=== PATIENT | male | born 1985 | race Two or more races ===

== ENCOUNTER 2017-09-13 08:48 | Emergency (ER) | payer SELFPAY ==
[~2017-09-13] VITALS: Ht 172.7 cm; Wt 70.3 kg
[2017-09-13 10:21] LABS: APPEARANCE,URINE TURBID; BILIRUBIN, URINE NEGATIVE (NEGATIVE); COLOR,URINE PALE YELLOW; GLUCOSE, URINE (UA) NEGATIVE (NEGATIVE); KETONES,URINE NEGATIVE (NEGATIVE); LEUKOCYTE ESTERASE ,URINE 1+ (NEGATIVE); NITRITE,URINE NEGATIVE (NEGATIVE); PH,URINE 5 (4.5-8.0); PROTEIN,URINE 2+ (NEGATIVE); UROBILINOGEN,URINE NORMAL MG/DL (0.0-1.0)
[2017-09-13 10:21] LABS: BASOPHILS % (AUTO) 0.5 % (0.0-2.0); HEMATOCRIT 46.2 % (42.0-52.0); HEMOGLOBIN 15.3 G/DL (14.2-18.0); LYMPHOCYTES % (AUTO) 15.4 % (20.0-45.0); MEAN CORPUSCULAR VOLUME 83 FL (80-99); MONOCYTES % (AUTO) 8.8 % (1.0-10.0); NEUTROPHILS % (AUTO) 74.3 % (45.0-75.0); PLATELET COUNT 271 K/UL (150-450); RED BLOOD COUNT 5.54 M/UL (4.70-6.10); RED CELL DISTRIBUTION WIDTH 12.4 % (11.6-14.8); WHITE BLOOD COUNT 9.5 K/UL (4.8-10.8)
[2017-09-13] MEDS ORDERED: Mylanta II UD 30ml ORAL ONE (10:45)
[2017-09-13] MEDS ORDERED: Lidocaine 2% Visc 15ml soln PO ONE (10:45)
[2017-09-13 10:46] LABS: ANION GAP 12 mmol/L (5-15); BLOOD UREA NITROGEN 19 mg/dL (7-18); CALCIUM 9.8 MG/DL (8.5-10.1); CARBON DIOXIDE 24 MMOL/L (21-32); CHLORIDE 103 MMOL/L (98-107); CREATININE 1.4 MG/DL (0.55-1.30); POTASSIUM 4.2 MMOL/L (3.5-5.1); SODIUM 139 MMOL/L (136-145)
[2017-09-13 10:51] LABS: ALANINE AMINOTRANSFERASE 59 U/L (12-78); ALBUMIN 4.5 G/DL (3.4-5.0); ALKALINE PHOSPHATASE 101 U/L (46-116); ASPARTATE AMINO TRANSFERASE 22 U/L (15-37); BILIRUBIN,TOTAL 0.6 MG/DL (0.2-1.0)
[2017-09-13 11:15] VITALS: BP 169/69
[2017-09-13] MEDS ORDERED: Ketorolac 30mg Inj IV ONE (11:30)
--- NOTE | 2017-09-13 12:21 | Emergency Room Report ---
History of Present Illness General Chief Complaint: Abdominal Pain Source: Patient Present Illness HPI This patient c/o one day right abd pain. Sharp, severe, constant. A/w nausea, no vomiting, no fever, no dysuria. Not better/worse since onset. No similar history. PMH: none Allergies: Coded Allergies: No Known Allergies (Unverified , 09/13/17) Nursing Documentation-PMH Past Medical History: No Stated History Review of Systems Constitutional: Reports: no symptoms Eye: Reports: no symptoms ENT: Reports: no symptoms Respiratory: Reports: no symptoms Cardiovascular: Reports: no symptoms Gastrointestinal: Reports: see HPI, abdominal pain Genitourinary: Reports: no symptoms Musculoskeletal: Reports: no symptoms Skin: Reports: no symptoms Psychiatric: Reports: no symptoms Neurological: Reports: no symptoms Endocrine: Reports: no symptoms Hematologic/Lymphatic: Reports: no symptoms Allergic: Reports: no symptoms Physical Exam Vital Signs Date Time Temp Pulse Resp B/P (MAP) Pulse Ox O2 Delivery O2 Flow Rate FiO2 09/13/17 08:51 98.2 108 20 185/110 96 Room Air 98.2 Sp02 EP Interpretation: reviewed, normal General Appearance: normal inspection, well appearing, no apparent distress, alert, GCS 15, non-toxic, mild distress, other - uncomfortable Head: normocephalic, atraumatic Eyes: bilateral eye normal inspection, bilateral eye PERRL, bilateral eye EOMI ENT: normal ENT inspection, hearing grossly normal, normal pharynx, no angioedema, normal voice, moist mucus membranes Neck: normal inspection, full range of motion, supple, no meningismus, no bony tend Respiratory: normal inspection, lungs clear, normal breath sounds, no rhonchi, no respiratory distress, no retraction, no accessory muscle use, no wheezing Cardiovascular #1: normal inspection, regular rate, rhythm, no edema Gastrointestinal: normal inspection, normal bowel sounds, soft, no mass, non- distended, other - nonsurgical but generalized abd tenderness, moderate R>L Musculoskeletal: gait/station normal, normal range of motion Neurologic: normal inspection, alert, oriented x3, responsive, motor strength/ tone normal Psychiatric: normal inspection, judgement/insight normal, memory normal Suicide Risk Assessment: Suicidal Ideation: No Had intent to initiate attempt: No Pt's plan for suicide attempt: No Has means to complete attempt: No Skin: normal inspection, normal color, no rash, warm/dry Medical Decision Making Reaction to Intervention: Improved Diagnostic Impression: Primary Impression: Renal colic on right side ER Course CT 8x5 mm right distal ureteral stone CT/MRI/US Diagnostic Results CT/MRI/US Diagnostic Results : Imaging Test Ordered: CT abd: right distal ureteral 8x5 mm stone Last Vital Signs Date Time Temp Pulse Resp B/P (MAP) Pulse Ox O2 Delivery O2 Flow Rate FiO2 09/13/17 11:32 98.2 09/13/17 08:51 108 20 185/110 96 Room Air Status: improved Disposition: HOME, SELF-CARE Referrals: NOT CHOSEN IPA/,REFERRING (PCP) Patient Instructions: Renal Colic, [id number] Jerardo Espinoza M.D. Sep 13, 2017 12:20
[2017-09-13] MEDS ORDERED: NORCO 5-325 TA1 EACH ORAL (12:22)
[2017-09-13] MEDS ORDERED: TAMSULOSIN HCL0.4 MG ORAL (12:22)
--- NOTE | 2017-09-13 12:23 | Diagnostic Imaging Report ---
Indication: Right lower quadrant abdominal pain Technique: Spiral acquisitions obtained through the abdomen and pelvis. No oral or IV contrast utilized, per urinary stone protocol. Multiplanar reconstructions were generated. Total dose length product 724.13 mGycm. CTDIvol(s) 13.21 mGy. Dose reduction achieved using automated exposure control Comparison: none Findings: There is an 8 x 5 x 5 mm calculus within the mid to distal right ureter, located approximately 10 cm proximal to the ureterovesical junction. There is mild right hydronephrosis and mild to moderate right proximal hydroureter. There is considerable stranding of the periureteral fat. A cluster of calculi is seen in the right lower pole collecting system. Multiple intrarenal calculi are also seen in the left lower pole renal collecting system. No left renal or ureteral calculi, left hydronephrosis or hydroureter demonstrated. The bladder is unremarkable and no bladder calculi are demonstrated. Lack of IV contrast limits assessment of the renal parenchyma. No gross renal parenchymal mass or cyst demonstrated. Lack of IV contrast limits assessment of the other solid organs. The liver is borderline enlarged and diffusely hypoattenuating. No focal abnormality. The gallbladder, bile ducts, pancreas, spleen, adrenals are unremarkable. No retroperitoneal or mesenteric mass or adenopathy. No pelvic mass or adenopathy. The appendix is normal. There is colonic diverticulosis. No evidence of diverticulitis no small bowel distention. No free or loculated intraperitoneal air or fluid is evident. The distal esophagus, stomach, duodenum are unremarkable. Some linear atelectasis or scarring is seen at the right lung base. The bones are unremarkable except for degenerative changes of the lumbosacral junction.. Impression: Positive for a 10 x 5 x 5 mm right distal ureteral calculus. Resultant hydronephrosis, hydroureter, and periureteral fat stranding Bilateral intrarenal calculi Fatty liver. Borderline hepatomegaly Colonic diverticulosis. No evidence of diverticulitis Degenerative lumbosacral spondylosis Findings discussed by phone with Dr. Espinoza in the emergency room at the time of interpretation The CT scanner at [facility] is accredited by the [employer] and the scans are performed using protocols designed to limit radiation exposure to as low as reasonably achievable to attain images of sufficient resolution adequate for diagnostic evaluation.
[2017-09-13 12:33] VITALS: BP 169/69
[2017-09-13 12:34] VITALS: BP 169/69
== END 2017-09-13 13:00 | disposition home or self-care (01) ==
LOC: EMR 09:44
DX: N20.0 Calculus of kidney (principal); K76.0 Fatty (change of) liver, not elsewhere classified; R16.0 Hepatomegaly, not elsewhere classified; K57.30 Diverticulosis of large intestine without perforation or abscess without bleeding; M47.817 Spondylosis without myelopathy or radiculopathy, lumbosacral region
CPT/HCPCS: 36415; 74176; 80053; 81001; 83690; 85025; 96374; 99284; J1885

== ENCOUNTER 2019-11-27 10:56 | Emergency (ER) | payer MEDICAID ==
[~2019-11-27] VITALS: Ht 172.7 cm; Wt 72.6 kg
[~2019-11-27 10:56] MED LIST: NORCO 5-325 TA1 EACH ORAL; TAMSULOSIN HCL0.4 MG ORAL
[2019-11-27 11:19] VITALS: BP 180/122
[2019-11-27] MEDS ORDERED: Morphine Sulfate 4mg/ml Inj (IV USE ONLY) IVP ONE (11:30)
[2019-11-27] MEDS ORDERED: Ketorolac 30mg Inj IV ONE (11:30)
[2019-11-27 11:47] LABS: EOSINOPHILS % (AUTO) 2.3 % (0.0-3.0); HEMATOCRIT 50.4 % (42.0-52.0); LYMPHOCYTES % (AUTO) 22.6 % (20.0-45.0); MEAN CORPUSCULAR VOLUME 81 FL (80-99); MONOCYTES % (AUTO) 8.8 % (1.0-10.0); NEUTROPHILS % (AUTO) 65.3 % (45.0-75.0); PLATELET COUNT 208 K/UL (150-450); RED BLOOD COUNT 6.25 M/UL (4.70-6.10); RED CELL DISTRIBUTION WIDTH 12.9 % (11.6-14.8); WHITE BLOOD COUNT 6.7 K/UL (4.8-10.8)
--- NOTE | 2019-11-27 11:48 | Emergency Room Report ---
History of Present Illness General Chief Complaint: Back Pain-No Injury Source: Patient Present Illness HPI 34-year-old male presents complaining of right flank pain. Started yesterday. Pain is sharp, 10 out of 10, radiating towards the groin. Also notes hematuria. Previously for similar presentation. History of kidney stones. Denies fevers or chills. Denies nausea or vomiting. No other aggravating relieving factors. 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 Patient History Past Medical History: other - kidney stone Past Surgical History: none Pertinent Family History: none Social History: Denies: smoking, alcohol use, drug use Immunizations: UTD Reviewed Nursing Documentation: PMH: Agreed; PSxH: Agreed Nursing Documentation-PMH Past Medical History: No Stated History Review of Systems All Other Systems: negative except mentioned in HPI Physical Exam Vital Signs Date Time Temp Pulse Resp B/P (MAP) Pulse Ox O2 Delivery O2 Flow Rate FiO2 11/27/19 11:03 98.4 93 16 180/122 (141) 96 Room Air Sp02 EP Interpretation: reviewed, normal General Appearance: no apparent distress, alert, GCS 15, non-toxic Head: normocephalic, atraumatic Eyes: bilateral eye normal inspection, bilateral eye PERRL ENT: hearing grossly normal, normal pharynx, no angioedema, normal voice Neck: full range of motion, supple/symm/no masses Respiratory: chest non-tender, lungs clear, normal breath sounds, speaking full sentences Cardiovascular #1: regular rate, rhythm, no edema Cardiovascular #2: 2+ carotid (R), 2+ carotid (L), 2+ radial (R), 2+ radial (L), 2+ dorsalis pedis (R), 2+ dorsalis pedis (L) Gastrointestinal: normal bowel sounds, non tender, soft, non-distended, no guarding, no rebound Rectal: deferred Genitourinary: normal inspection, CVA tenderness (R) Musculoskeletal: back normal, normal range of motion, gait/station normal, non- tender Neurologic: alert, motor strength/tone normal, oriented x3, sensory intact, responsive, speech normal Psychiatric: judgement/insight normal, memory normal, mood/affect normal, no suicidal/homicidal ideation Reflexes: 3+ bicep (R), 3+ bicep (L), 3+ tricep (R), 3+ tricep (L), 3+ knee (R), 3+ knee (L) Skin: no rash Lymphatic: no adenopathy Medical Decision Making Diagnostic Impression: Primary Impression: Kidney stone Additional Impression: UTI (urinary tract infection) Qualified Codes: N39.0 - Urinary tract infection, site not specified; R31.9 - Hematuria, unspecified ER Course Hospital Course 34-year-old M presents to ED with R flank pain Differential diagnosis includes-appendicitis, cholecystitis, kidney stone, pyelonephritis Clinical course Patient placed on stretcher. After initial history and physical I ordered labs, IV fluids, pain medications and CT scan Labs - no leukocytosis, Cr 1.4, LFTs normal, UA - hematuria, + nitrites + LE CT scan shows 8x5mm stone in distal R ureter with hydronephrisis/hydroureter I discussed with urology. Patient afebrile, nontoxic-appearing. Vitals stable. No signs of obstruction. Agree with his assessment that patient can be discharged home. I discussed findings with patient. Safe for discharge close outpatient follow-up. I will provide referrals I feel this is a highly complex case requiring extensive working including EKG/Rhythm strip, Xray/CT/US, Blood/urine lab work, repeat exams while in ED, and administration of strong opiates/narcotics for pain control, admission to hospital or close patient follow up. Diagnosis - kidney stone,uti Stable and discharged to home with Rx Motrin, [place], Flomax, keflex. Followup with PMD. Return to ED if symptoms recur or worsen Laboratory Tests Test 11/27/19 11:27 White Blood Count 6.7 K/UL (4.8-10.8) Red Blood Count 6.25 M/UL (4.70-6.10) H Hemoglobin 17.0 G/DL (14.2-18.0) Hematocrit 50.4 % (42.0-52.0) Mean Corpuscular Volume 81 FL (80-99) Mean Corpuscular Hemoglobin 27.3 PG (27.0-31.0) Mean Corpuscular Hemoglobin Concent 33.8 G/DL (32.0-36.0) Red Cell Distribution Width 12.9 % (11.6-14.8) Platelet Count 208 K/UL (150-450) Mean Platelet Volume 7.7 FL (6.5-10.1) Neutrophils (%) (Auto) 65.3 % (45.0-75.0) Lymphocytes (%) (Auto) 22.6 % (20.0-45.0) Monocytes (%) (Auto) 8.8 % (1.0-10.0) Eosinophils (%) (Auto) 2.3 % (0.0-3.0) Basophils (%) (Auto) 1.0 % (0.0-2.0) Urine Color Brown Urine Appearance Cloudy Urine pH 5 (4.5-8.0) Urine Specific [place] 1.020 (1.005-1.035) Urine Protein 3+ (NEGATIVE) H Urine Glucose (UA) Negative (NEGATIVE) Urine Ketones Negative (NEGATIVE) Urine Blood 5+ (NEGATIVE) H Urine Nitrite Positive (NEGATIVE) H Urine Bilirubin Negative (NEGATIVE) Urine Urobilinogen Normal MG/DL (0.0-1.0) Urine Leukocyte Esterase 1+ (NEGATIVE) H Urine RBC Tntc /HPF (0 - 0) H Urine WBC 2-4 /HPF (0 - 0) Urine Squamous Epithelial Cells Occasional /LPF Urine Bacteria Few /HPF (NONE) Sodium Level 138 MMOL/L (136-145) Potassium Level 4.5 MMOL/L (3.5-5.1) Chloride Level 100 MMOL/L (98-107) Carbon Dioxide Level 24 MMOL/L (21-32) Anion Gap 14 mmol/L (5-15) Blood Urea Nitrogen 24 mg/dL (7-18) H Creatinine 1.4 MG/DL (0.55-1.30) H Estimat Glomerular Filtration Rate 57.7 mL/min (>60) Glucose Level 134 MG/DL (74-106) H Calcium Level 9.7 MG/DL (8.5-10.1) Total Bilirubin 0.6 MG/DL (0.2-1.0) Aspartate Amino Transf (AST/SGOT) 15 U/L (15-37) Alanine Aminotransferase (ALT/SGPT) 43 U/L (12-78) Alkaline Phosphatase 79 U/L (46-116) Total Protein 8.2 G/DL (6.4-8.2) Albumin 4.7 G/DL (3.4-5.0) Globulin 3.5 g/dL Albumin/Globulin Ratio 1.3 (1.0-2.7) Lipase 235 U/L (73-393) CT/MRI/US Diagnostic Results CT/MRI/US Diagnostic Results : Imaging Test Ordered: CT A/P Impression Procedure: CT Abdomen Pelvis WO Contrast Indication: Right flank pain 10 out of 10 Technique: Spiral acquisitions obtained through the abdomen and pelvis. No oral or IV contrast utilized, per urinary stone protocol. Multiplanar reconstructions were generated. Total dose length product 275 mGycm. CTDIvol(s) 5 mGy. Dose reduction achieved using automated exposure control Comparison: 09/13/2017 Findings: There is an 8 x 5 mm calculus in the distal right ureter just proximal to the ureterovesical junction. This results in mild right hydroureter, mild hydronephrosis, and slight stranding of the perinephric and periureteral fat. Previously demonstrated right mid ureteral calculus is not evident currently. Small cluster of intrarenal calculi and a right lower pole calyx appears similar to the previous exam. A new calculus is seen in a posterior right lower pole calyx. The left kidney is atrophic, much more so than on the previous study. It demonstrates multiple intrarenal calculi which appears similar to the previous exam. Lack of IV contrast limits assessment of the renal parenchyma. No gross renal parenchymal mass or cyst demonstrated. Lack of IV contrast limits assessment of the solid organs. The liver is hypoattenuating, consistent with fatty change. However, this is decreased from the previous exam. A punctate calcification is seen in the right hepatic lobe. The gallbladder, bile ducts, pancreas, spleen, adrenals are unremarkable. No retroperitoneal or mesenteric mass or adenopathy. No pelvic mass or adenopathy.. Again demonstrated are colonic diverticula. No evidence of acute diverticulitis. The appendix is normal. No small bowel distention. No free or loculated intraperitoneal gas or fluid is evident. The distal esophagus, stomach, duodenum are unremarkable. The included lung bases demonstrate a calcified granuloma in the right lower lobe, are otherwise clear. The bones are unremarkable. Impression: Positive for right distal ureteral calculus. This results in mild right hydroureter and hydronephrosis Bilateral intrarenal calculi again demonstrated, slightly more numerous on the right than previously. Left renal atrophy. This is a new finding since the previous exam. Etiology not demonstrated. Fatty liver. This is somewhat improved from the previous study Incidental finding of old granulomatous disease in the right lung and liver The CT scanner at [facility] is accredited by the [employer] and the scans are performed using protocols designed to limit radiation exposure to as low as reasonably achievable to attain images of sufficient res olution adequate for diagnostic evaluation. Last Vital Signs Date Time Temp Pulse Resp B/P (MAP) Pulse Ox O2 Delivery O2 Flow Rate FiO2 11/27/19 11:19 98.4 16 180/122 96 Room Air 11/27/19 11:03 93 Status: improved Disposition: HOME, SELF-CARE Condition: Stable Scripts Hydrocodone Bit/Acetaminophen 5-325* (NORCO 5-325 TABLET*) 1 Each Tablet 1 TAB ORAL Q6H PRN for FOR PAIN, #12 TAB 0 Refills Prov: Cipriano Chan MD 11/27/19 Ibuprofen* (MOTRIN*) 600 Mg Tablet 600 MG ORAL Q8H PRN for FOR PAIN, #30 TAB 0 Refills Prov: Cipriano Chan MD 11/27/19 Cephalexin* (KEFLEX*) 500 Mg Capsule 500 MG ORAL EVERY 6 HOURS, #28 CAP Prov: Cipriano Chan MD 11/27/19 Tamsulosin HCl (Flomax) 0.4 Mg Cap.er.24h 0.4 MG ORAL DAILY for 10 Days, CAP Prov: Cipriano Chan MD 11/27/19 Referrals: NOT CHOSEN IPA/,REFERRING (PCP) Cipriano Chan MD Nov 27, 2019 11:48
[2019-11-27 11:51] LABS: APPEARANCE,URINE CLOUDY; BILIRUBIN, URINE NEGATIVE (NEGATIVE); GLUCOSE, URINE (UA) NEGATIVE (NEGATIVE); KETONES,URINE NEGATIVE (NEGATIVE); LEUKOCYTE ESTERASE ,URINE 1+ (NEGATIVE); NITRITE,URINE POSITIVE (NEGATIVE); PH,URINE 5 (4.5-8.0); PROTEIN,URINE 3+ (NEGATIVE); UROBILINOGEN,URINE NORMAL MG/DL (0.0-1.0)
[2019-11-27 11:55] LABS: COLOR,URINE BROWN
[2019-11-27 12:06] LABS: CALCIUM 9.7 MG/DL (8.5-10.1); CREATININE 1.4 MG/DL (0.55-1.30); POTASSIUM 4.5 MMOL/L (3.5-5.1)
[2019-11-27 12:10] LABS: ALBUMIN 4.7 G/DL (3.4-5.0); ALBUMIN/GLOBULIN RATIO 1.3 (1.0-2.7); BILIRUBIN,TOTAL 0.6 MG/DL (0.2-1.0)
--- NOTE | 2019-11-27 12:55 | Diagnostic Imaging Report ---
Indication: Right flank pain 10 out of 10 Technique: Spiral acquisitions obtained through the abdomen and pelvis. No oral or IV contrast utilized, per urinary stone protocol. Multiplanar reconstructions were generated. Total dose length product 275 mGycm. CTDIvol(s) 5 mGy. Dose reduction achieved using automated exposure control Comparison: 09/13/2017 Findings: There is an 8 x 5 mm calculus in the distal right ureter just proximal to the ureterovesical junction. This results in mild right hydroureter, mild hydronephrosis, and slight stranding of the perinephric and periureteral fat. Previously demonstrated right mid ureteral calculus is not evident currently. Small cluster of intrarenal calculi and a right lower pole calyx appears similar to the previous exam. A new calculus is seen in a posterior right lower pole calyx. The left kidney is atrophic, much more so than on the previous study. It demonstrates multiple intrarenal calculi which appears similar to the previous exam. Lack of IV contrast limits assessment of the renal parenchyma. No gross renal parenchymal mass or cyst demonstrated. Lack of IV contrast limits assessment of the solid organs. The liver is hypoattenuating, consistent with fatty change. However, this is decreased from the previous exam. A punctate calcification is seen in the right hepatic lobe. The gallbladder, bile ducts, pancreas, spleen, adrenals are unremarkable. No retroperitoneal or mesenteric mass or adenopathy. No pelvic mass or adenopathy.. Again demonstrated are colonic diverticula. No evidence of acute diverticulitis. The appendix is normal. No small bowel distention. No free or loculated intraperitoneal gas or fluid is evident. The distal esophagus, stomach, duodenum are unremarkable. The included lung bases demonstrate a calcified granuloma in the right lower lobe, are otherwise clear. The bones are unremarkable. Impression: Positive for right distal ureteral calculus. This results in mild right hydroureter and hydronephrosis Bilateral intrarenal calculi again demonstrated, slightly more numerous on the right than previously. Left renal atrophy. This is a new finding since the previous exam. Etiology not demonstrated. Fatty liver. This is somewhat improved from the previous study Incidental finding of old granulomatous disease in the right lung and liver The CT scanner at [facility] is accredited by the [employer] and the scans are performed using protocols designed to limit radiation exposure to as low as reasonably achievable to attain images of sufficient resolution adequate for diagnostic evaluation.
[2019-11-27] MEDS ORDERED: FLOMAX0.4 MG ORAL (13:40)
[2019-11-27] MEDS ORDERED: NORCO 5-325 TA1 EAC1 ORAL (13:40)
[2019-11-27] MEDS ORDERED: CEPHALEXIN500 MG ORAL (13:40)
[2019-11-27] MEDS ORDERED: IBUPROFEN600 M1 ORAL (13:40)
[2019-11-27 13:50] VITALS: BP 160/86
== END 2019-11-27 13:50 | disposition home or self-care (01) ==
LOC: EMR 11:43
DX: N20.0 Calculus of kidney (principal); N39.0 Urinary tract infection, site not specified; R31.9 Hematuria, unspecified
CPT/HCPCS: 36415; 74176; 80053; 81003; 83690; 85025; 96361; 96374; 96375; J1885; J2270; J7030; Z7502; 99284